=== PATIENT | male | born 1980 | race Caucasian/White ===

== ENCOUNTER 2017-11-18 01:35 | Emergency (ER) | payer BC ==
[2017-11-18] MEDS ORDERED: HYDROmorphONE/DILAUDID 2 MG/ML INJ IVP ONE (01:49)
[2017-11-18] MEDS ORDERED: ONDANSETRON 4 MG/2 ML VIAL IVP ONE (01:50)
[2017-11-18] MEDS ORDERED: NS 1,000 ML IV ONE (01:53)
[2017-11-18] MEDS ORDERED: KETOROLAC 15 MG/1 ML SDV IVP ONE (02:14)
--- NOTE | 2017-11-18 03:00 | EDPHY ---
H & P Stated Complaint: R FLANK PAIN Time Seen by Provider: 11/18/17 01:50 HPI/ROS: Chief Complaint: Flank pain HPI: 37-year-old male woke this morning with severe right flank pain radiating to his groin and his testicle. He has a history of similar pain in the past when he passed a kidney stone. No fevers or chills. No urinary urgency or frequency. Otherwise been in his normal state health. Some nausea and vomiting. No diarrhea or constipation. No abdominal pain. There are no aggravating or alleviating factors. He cannot find a position of comfort. ROS: 10 point Review of Systems is negative except as noted in the HPI. PMH: Kidney stone Social History: No smoking, occasional alcohol, no recreational drug use Family History: non-contributory Physical Exam: Gen: Awake, Alert, uncomfortable appearing HEENT: Nose: no rhinorrhea Eyes: PERRLA, EOMI Mouth: Moist mucosa Neck: Supple, no JVD Chest: nontender, lungs clear to auscultation Heart: S1, S2 normal, no murmur Abd: Soft, non-tender, no guarding Back: no CVA tenderness, no midline tenderness Ext: no edema, non-tender Skin: no rash Neuro: CN II-XII intact, Sensation grossly intact, Strength 5/5 in bilateral upper and lower extremities - Personal History Current Tetanus Diphtheria and Acellular Pertussis (TDAP): Yes - Medical/Surgical History Other PMH: KIDNEY STONE,PE - Social History Smoking Status: Current every day smoker Constitutional: Initial Vital Signs Temperature (C) 37.0 C 11/18/17 01:37 Heart Rate 64 11/18/17 01:37 Respiratory Rate 18 11/18/17 01:37 Blood Pressure 108/91 H 11/18/17 01:37 O2 Sat (%) 98 11/18/17 01:37 O2 Delivery Mode Nasal Cannula O2 (L/minute) 2 Allergies/Adverse Reactions: No Known Allergies Allergy (Unverified 11/18/17 01:36) Home Medications: Medication Instructions Recorded NK [No Known Home Meds] 11/18/17 Medical Decision Making - Diagnostics Imaging Results: CT scan of the abdomen pelvis shows a 2 mm stone in the right bladder wall, moderate right hydro. Normal appendix. Study was interpreted by Dr. Trip Ruboi. Imaging: Discussed imaging studies w/ manager call center Radiologist ED Course/Re-evaluation: 37-year-old male with a right kidney stone, 2 mm which is imminently passing into the bladder. No pyuria. Patient is improved. Will discharge with follow- up with primary care physician. Will send him home with a urine strainer to collect the stone. - Data Points Laboratory Results: Laboratory Results 11/18/17 01:48 11/18/17 11/18/17 01:53 01:48 Sodium 142 mEq/L mEq/L (135-145) Potassium 3.6 mEq/L mEq/L (3.5-5.2) Chloride 104 mEq/L mEq/L (97-110) Carbon Dioxide 21 mEq/l L mEq/l (22-31) Anion Gap 17 mEq/L H mEq/L (8-16) BUN 15 mg/dL mg/dL (7-23) Creatinine 1.0 mg/dL mg/dL (0.7-1.3) Estimated GFR > 60 Glucose 128 mg/dL H mg/dL (70-100) Calcium 8.9 mg/dL mg/dL (8.5-10.4) Total Bilirubin 0.9 mg/dL mg/dL (0.1-1.4) AST 31 IU/L IU/L (17-59) ALT 68 IU/L IU/L (21-72) Alkaline Phosphatase 56 IU/L IU/L (38-126) Total Protein 7.2 g/dL g/dL (6.3-8.2) Albumin 4.1 g/dL g/dL (3.5-5.0) Urine Color YELLOW Urine Appearance CLEAR Urine pH 5.0 (5.0-7.5) Ur Specific [place] 1.023 (1.002-1.030) Urine Protein NEGATIVE (NEGATIVE) Urine Ketones NEGATIVE (NEGATIVE) Urine Blood NEGATIVE (NEGATIVE) Urine Nitrate NEGATIVE (NEGATIVE) Urine Bilirubin NEGATIVE (NEGATIVE) Urine Urobilinogen 2.0 EU H EU (0.2-1.0) Ur Leukocyte Esterase NEGATIVE (NEGATIVE) Urine Glucose NEGATIVE (NEGATIVE) Medications Given: Discontinued Medications Hydromorphone HCl (Dilaudid) 1 mg IVP EDNOW ONE Stop: 11/18/17 01:50 Last Admin: 11/18/17 01:56 Dose: 1 mg Sodium Chloride (Ns) 1,000 mls @ 0 mls/hr IV ONCE ONE PRN Reason: Wide Open Stop: 11/18/17 01:54 Last Admin: 11/18/17 01:54 Dose: 1,000 mls Ketorolac Tromethamine (Toradol) 15 mg IVP EDNOW ONE Stop: 11/18/17 02:15 Last Admin: 11/18/17 02:27 Dose: 15 mg Ondansetron HCl (Zofran) 4 mg IVP EDNOW ONE Stop: 11/18/17 01:51 Last Admin: 11/18/17 01:54 Dose: 4 mg Departure - Departure Disposition: Home, Routine, Self-Care Clinical Impression: Kidney stone Condition: Good Instructions: Kidney Stones (ED) Additional Instructions: You may continue taking ibuprofen, 600 mg 3 times a day as needed for pain. You may also take acetaminophen, 1000 mg every 6 hr, do not exceed 3000 mg in 24 hr. Strain your urine and collect the stone to take to your primary care physician at your next appointment. Follow up with your primary care physician in 3-4 days for further evaluation. Return to the emergency department for increasing pain, uncontrolled nausea vomiting, fevers or chills, or any other concerns. Referrals: NONE *PRIMARY CARE P,. [Primary Care Provider] - As per Instructions
[2017-11-18 03:36] VITALS: BP 112/75
== END 2017-11-18 03:39 | disposition home or self-care (01) ==
DX: N20.0 Calculus of kidney (principal); F17.200 Nicotine dependence, unspecified, uncomplicated
CPT/HCPCS: 96374; J1170; J1885; J2405